=== PATIENT | male | born 1995 | race Caucasian/White ===

== ENCOUNTER 2022-03-28 19:14 | Emergency (ER) | payer OTHER ==
[~2022-03-28] VITALS: Ht 190.5 cm; Wt 65.8 kg
--- NOTE | 2022-03-28 19:30 | NUR ---
seen and examined by Dr. Martin
[2022-03-28] MEDS ORDERED: TDAP DIPH,PERTUSS,TET VAC/PF 0.5 ML DISP.SYRIN IM ONE ×2 (19:45→19:55)
[2022-03-28] MEDS ORDERED: LIDOCAINE HCL 2% 20 ML VIAL TP ONE (19:45)
[2022-03-28] MEDS ORDERED: LIDOCAINE HCL 2% 20 ML VIAL ONE (19:55)
[2022-03-28] MEDS ORDERED: ASPIRIN 81 MG TAB.CHEW ONE (20:13)
[2022-03-28] MEDS ORDERED: METOPROLOL TARTRATE 50 MG TABLET ONE (20:13)
[2022-03-28] MEDS ORDERED: NITROGLYCERIN OINT 1 GM PACKET TP ONE (20:13)
[2022-03-28 21:02] VITALS: BP 112/80
--- NOTE | 2022-03-28 21:03 | NUR ---
Patient discharged to home in stable condition. Written and verbal after care instructions given. Patient verbalizes understanding of instructions. Stressed follow up or return to ER for worsening s/s.
== END 2022-03-28 21:00 | disposition home or self-care (01) ==
LOC: ER 19:45
DX: S61.213A Laceration without foreign body of left middle finger without damage to nail, initial encounter (principal); S61.215A Laceration without foreign body of left ring finger without damage to nail, initial encounter; W26.8XXA Contact with other sharp object(s), not elsewhere classified, initial encounter; Y92.012 Bathroom of single-family (private) house as the place of occurrence of the external cause
CPT/HCPCS: 99283; 90715; 90471; 12002; J3490; A4663